=== PATIENT | male | born 1960 | race Two or more races ===

== ENCOUNTER 2020-11-16 21:53 | Inpatient (IN) | payer MEDICAID ==
[~2020-11-16] VITALS: Ht 175.3 cm; Wt 86.4 kg
[2020-11-16] MEDS ORDERED: iohexol 350MG/ML 100ml bottle IV ONE (22:09)
[2020-11-16 22:27] LABS: BASOPHILS % (AUTO) 0.4 % (0-1); EOSINOPHILS % (AUTO) 0.5 % (0-6); HEMOGLOBIN 14.6 g/dl (14.0-17.9); LYMPHOCYTES # (AUTO) 1.5 X10'3 (1.1-4.8); LYMPHOCYTES % (AUTO) 15.8 % (21-51); MEAN CORPUSCULAR HEMOGLOBIN 28.5 PG (27.0-31.0); MEAN CORPUSCULAR HGB CONC 32.6 g/dL (33.0-36.5); MEAN CORPUSCULAR VOLUME 87.7 FL (78-98); MEAN PLATELET VOLUME 7.4 FL (7.4-10.4); MONOCYTES # (AUTO) 0.7 X10'3 (0-0.9); MONOCYTES % (AUTO) 7.3 % (2-12); NEUTROPHILS # (AUTO) 7.3 X10'3 (1.8-7.7); PLATELET COUNT 268 X10'3 (140-440); RED BLOOD COUNT 5.13 X10'6 (4.70-6.10); RED CELL DISTRIBUTION WIDTH 18.3 % (11.5-14.5); WHITE BLOOD COUNT 9.6 X10'3 (4.5-11.0)
[2020-11-16] MEDS ORDERED: NO HOME MEDS (22:34)
[2020-11-16 22:36] LABS: D-DIMER 0.83 MG/L FEU (0-0.50); PARTIAL THROMBOPLASTIN TIME 25 SECONDS (22-32)
[2020-11-16 22:51] LABS: ALANINE AMINOTRANSFERASE 45 U/L (12-78); ALBUMIN 3.6 G/DL (3.4-5.0); ALBUMIN/GLOBULIN RATIO 0.9 (1.1-1.5); ALKALINE PHOSPHATASE 74 IU/L (46-116); ANION GAP 28 (8-16); ASPARTATE AMINO TRANSFERASE 70 U/L (10-37); BILIRUBIN,TOTAL 0.5 MG/DL (0.1-1.0); BLOOD UREA NITROGEN 9 MG/DL (7-18); BUN/CREATININE RATIO 9.5 (5.4-32.0); CALCIUM 8.2 MG/DL (8.5-10.1); CHLORIDE 102 MMOL/L (99-107); CREATININE 0.95 MG/DL (0.60-1.10); FERRITIN 50 NG/ML (26-388); GLUCOSE 63 MG/DL (70-104); LACTATE DEHYDROGENASE 241 U/L (85-227); MAGNESIUM 1.5 MG/DL (1.5-2.4); POTASSIUM 3.6 MMOL/L (3.5-5.1); SODIUM 142 MMOL/L (135-145); TOTAL PROTEIN 7.7 G/DL (6.4-8.2); eGFR 81 ML/MIN
[2020-11-16 22:56] LABS: TOTAL CARBON DIOXIDE 11.9 MMOL/L (24-32)
[2020-11-16 23:46] LABS: ABG BASE EXCESS -11.7 mmol/L (-2.0-2.0); ABG HCO3 11.6 mmol/L (22.0-26.0); ABG OXYGEN SATURATION 96.6 % (94-97); ABG PCO2 (T) 21.9 mmHg (35.0-48.0); ABG PO2 (T) 91.1 mmHg (75.0-100.0); ALLEN'S TEST POSITIVE; FCOHb 0.8 % (0.0-3.9); FMetHb 0.3 % (0.0-1.5); FO2Hb 95.5 % (94-97); TOTAL HEMOGLOBIN 15.5 G/dl (14.0-18.0)
[2020-11-17] VITALS (10 sets, daily range): BP systolic 126–144; BP diastolic 71–89
[2020-11-17] MEDS ORDERED: metoclopramide 5 mg/ml inj IV ONE (00:20)
[2020-11-17] MEDS ORDERED: phenobarbital inj 260 MG in normal saline 100ml IV soln 100 ML IV ONE (00:20)
[2020-11-17] MEDS ORDERED: magnesium 2GM in 50ml NS 50 ML IV ONE (00:20)
[2020-11-17] MEDS ORDERED: thiamine inj. 100 MG in normal saline 100ml IV soln 99 ML IV ONE (00:20)
[2020-11-17] MEDS ORDERED: ondansetron/PF 4mg/2ml inj IV ONE (00:20)
[2020-11-17] MEDS ORDERED: normal saline 1000ML IV soln IVB ONE (00:20)
[2020-11-17 00:42] LABS: ETHANOL 0.054 GM/DL (0.0-0.010)
[2020-11-17] MEDS ORDERED: dextrose 50%-water 50ml dispensing syringe IV ONE (01:30)
[2020-11-17 01:43] LABS: URINE AMPHETAMINE SCREEN NEGATIVE (Neg); URINE BARBITUATE SCREEN NEGATIVE (Neg); URINE BENZODIAZEPINES SCREEN NEGATIVE (Neg); URINE CANNABINOID SCREEN NEGATIVE (Neg); URINE COCAINE SCREEN NEGATIVE (Neg); URINE METHADONE SCREEN NEGATIVE (Neg); URINE OPIATE SCREEN NEGATIVE (Neg); URINE PHENCYCLIDINE SCREEN NEGATIVE (Neg)
[2020-11-17] MEDS ORDERED: haloperidol lactate 5mg/ml inj IM PRN (01:45)
[2020-11-17] MEDS ORDERED: LORazepam 2 mg/ml vial IV PRN (01:45)
[2020-11-17] MEDS ORDERED: mag hydrox/Alum hydrox/simeth 30ml oral suspension PO PRN (01:45)
[2020-11-17] MEDS ORDERED: acetaminophen 325mg tablet PO PRN ×2 (01:45)
[2020-11-17] MEDS ORDERED: dextrose 50%-water 50ml dispensing syringe IV PRN (01:45)
[2020-11-17] MEDS ORDERED: magnesium hydroxide 30ml (MOM) UD suspension PO PRN (01:45)
[2020-11-17] MEDS ORDERED: haloperidol 5mg tablet PO PRN (01:45)
[2020-11-17] MEDS ORDERED: ondansetron/PF 4mg/2ml inj IV PRN (01:45)
[2020-11-17] MEDS: pantoprazole 40 MG vial IV SCH ×2 (02:43→09:11)
[2020-11-17] MEDS: atenolol 25mg tablet PO SCH ×2 (03:07→09:12)
--- NOTE | 2020-11-17 06:39 | NUR ---
Patient in room ED 7. I have received report from Maxine HERCULES and had the opportunity to ask questions in preparation to assume patient care when pt goes to room PCU 3011J
--- NOTE | 2020-11-17 07:19 | NUR ---
Pt arrived to unit on [address], ambulated to bed in room with only SBA. pt deny chest pain. VS WNL. no sob. safety education completed. pt oriented to new environment including bathroom, call light and TV. needs anticipated and met. no s/sx acute distress.
[2020-11-17] MEDS ORDERED: heparin, porcine 5000 units/ml vial SQ SCH (08:00)
[2020-11-17] MEDS ORDERED: thiamine 100mg tablet PO SCH (08:00)
[2020-11-17] MEDS ORDERED: folic acid inj. 2 MG, thiamine inj. 100 MG, MVI, adult No.4 with vit. K 10 ML in dextro... IV SCH ×4 (08:00)
[2020-11-17] MEDS ORDERED: folic acid 1mg tablet PO SCH (08:00)
[2020-11-17] MEDS ORDERED: multivitamins, therapeutics tablet PO SCH (08:00)
--- NOTE | 2020-11-17 08:26 | NUR ---
atenolol not available at this time. Pharmacy paged. "May i please have atenolol for this patient? both [facility] say they dont carry it and it is not in pt specific. pt just came here from ER this am -Thanks -Kelly #[phone]" will administer when available.
[2020-11-17] MEDS ORDERED: metoprolol tartrate 1mg/ml inj IV PRN (09:30)
[2020-11-17] MEDS ORDERED: nitroGLYCERIN 0.4mg SUBLingual tab SL PRN (09:30)
[2020-11-17] MEDS ORDERED: aminophylline 250mg/10ml inj. IV PRN (09:30)
[2020-11-17] MEDS: regadenoson 0.4mg/5ml syringe IV PRN ×2 (12:05→12:11)
--- NOTE | 2020-11-17 15:50 | NUR ---
Problems reprioritized. Patient report given, questions answered & plan of care reviewed with Julia HERCULES. Pt content in bed, no sob. no chest pain . no s/sx acute distress
--- NOTE | 2020-11-17 17:50 | NUR ---
Pt stable for discharge per MD order. all discharge instructions explained and discussed with pt, all questions answered. no new rx. PIV discontinued. desk monitor discontinued. pt ambulated to the lobby with stand by nurse, and left in taxi cab. pt left without sob, no chest pain, no s/sx acute distress
[2020-11-17] MEDS ORDERED: temazepam 15mg capsule PO PRN (21:00)
[2020-11-19] MEDS ORDERED: LORazepam 1 MG tablet PO PRN (01:45)
[2020-11-19] MEDS ORDERED: LORazepam 2 mg/ml vial IV PRN (01:45)
[2020-11-21] MEDS ORDERED: LORazepam 2 mg/ml vial IV PRN (01:45)
[2020-11-21] MEDS ORDERED: LORazepam 1 MG tablet PO PRN (01:45)
== END 2020-11-17 17:07 | disposition home or self-care (01) | DRG 203 ==
LOC: ER 21:54 → ED HOLD 11-17 01:52 → PCU 3S 11-17 06:50
PROVIDERS: ADMIT Internal Medicine; ATTEND Internal Medicine
PROC: B32T1ZZ Computerized Tomography (CT Scan) of Left Pulmonary Artery using Low Osmolar Contrast (ICD-10-PCS; 2020-11-16)
PROC: B3201ZZ Computerized Tomography (CT Scan) of Thoracic Aorta using Low Osmolar Contrast (ICD-10-PCS; 2020-11-16)
PROC: B32S1ZZ Computerized Tomography (CT Scan) of Right Pulmonary Artery using Low Osmolar Contrast (ICD-10-PCS; 2020-11-16)
PROC: 4A02XM4 Measurement of Cardiac Total Activity, External Approach (ICD-10-PCS; principal; 2020-11-17)
PROC: 3E073KZ Introduction of Other Diagnostic Substance into Coronary Artery, Percutaneous Approach (ICD-10-PCS; 2020-11-17)
DX: R07.89 Other chest pain (principal); E87.4 Mixed disorder of acid-base balance; E16.2 Hypoglycemia, unspecified; K21.9 Gastro-esophageal reflux disease without esophagitis; Z60.2 Problems related to living alone; F10.229 Alcohol dependence with intoxication, unspecified; Z66 Do not resuscitate; K29.20 Alcoholic gastritis without bleeding; F10.230 Alcohol dependence with withdrawal, uncomplicated; Z20.822 Contact with and (suspected) exposure to COVID-19; Z59.0 Homelessness
CPT/HCPCS: 36415; 36600; 71045; 71275; 78452; 80053; 80305; 80320; 82728; 82803; 82948; 83615; 83735; 83880; 84145; 84484; 85018; 85025; 85379; 85384; 85610; 85730; 86140; 87081; 87635; 93005; 93017; 93306; 96365; 99285; A9500; C9113; C9803; G0378; J1644; J2060; J2405; J2560; J2765; J2785; J3411; J3475; J7030; Q9967

== ENCOUNTER 2020-11-26 10:40 | Emergency (ER) | payer MEDICAID, OTHER ==
[~2020-11-26] VITALS: Ht 175.3 cm; Wt 86.4 kg
[~2020-11-26 10:40] MED LIST: NO HOME MEDS
[2020-11-26] MEDS ORDERED: pantoprazole 40 MG vial IV ONE (12:00)
[2020-11-26] MEDS ORDERED: ondansetron/PF 4mg/2ml inj IV ONE (12:00)
[2020-11-26] MEDS ORDERED: LORazepam 2 mg/ml vial IV ONE (12:00)
[2020-11-26 12:42] LABS: BASOPHILS # (AUTO) 0.1 X10'3 (0-0.2); BASOPHILS % (AUTO) 0.5 % (0-1); EOSINOPHILS % (AUTO) 0.4 % (0-6); HEMATOCRIT 46.7 % (42.0-52.0); HEMOGLOBIN 14.8 g/dl (14.0-17.9); LYMPHOCYTES # (AUTO) 0.8 X10'3 (1.1-4.8); LYMPHOCYTES % (AUTO) 7.8 % (21-51); MEAN CORPUSCULAR HEMOGLOBIN 28.8 PG (27.0-31.0); MEAN CORPUSCULAR HGB CONC 31.8 g/dL (33.0-36.5); MEAN CORPUSCULAR VOLUME 90.5 FL (78-98); MEAN PLATELET VOLUME 7.2 FL (7.4-10.4); MONOCYTES # (AUTO) 0.9 X10'3 (0-0.9); MONOCYTES % (AUTO) 8.4 % (2-12); NEUTROPHILS # (AUTO) 8.7 X10'3 (1.8-7.7); NEUTROPHILS % (AUTO) 82.9 % (42-75); PLATELET COUNT 262 X10'3 (140-440); RED BLOOD COUNT 5.16 X10'6 (4.70-6.10); RED CELL DISTRIBUTION WIDTH 18.5 % (11.5-14.5); WHITE BLOOD COUNT 10.5 X10'3 (4.5-11.0)
[2020-11-26 13:06] LABS: ALANINE AMINOTRANSFERASE 80 U/L (12-78); ALBUMIN 3.6 G/DL (3.4-5.0); ALBUMIN/GLOBULIN RATIO 0.9 (1.1-1.5); ALKALINE PHOSPHATASE 86 IU/L (46-116); ANION GAP 29 (8-16); ASPARTATE AMINO TRANSFERASE 103 U/L (10-37); BILIRUBIN,TOTAL 0.9 MG/DL (0.1-1.0); BLOOD UREA NITROGEN 10 MG/DL (7-18); BUN/CREATININE RATIO 9.5 (5.4-32.0); CALCIUM 7.6 MG/DL (8.5-10.1); CHLORIDE 104 MMOL/L (99-107); CREATININE 1.05 MG/DL (0.60-1.10); GLUCOSE 80 MG/DL (70-104); LIPASE 79 U/L (73-393); MAGNESIUM 1.6 MG/DL (1.5-2.4); POTASSIUM 4.3 MMOL/L (3.5-5.1); SODIUM 145 MMOL/L (135-145); TOTAL PROTEIN 7.8 G/DL (6.4-8.2); TROPONIN I < 0.04 NG/ML (0.0-0.05); eGFR 72 ML/MIN
[2020-11-26 13:09] LABS: TOTAL CARBON DIOXIDE 12.2 MMOL/L (24-32)
[2020-11-26 14:59] LABS: ALBUMIN 3.7 G/DL (3.4-5.0); ANION GAP 22 (8-16); BLOOD UREA NITROGEN 11 MG/DL (7-18); BUN/CREATININE RATIO 10.4 (5.4-32.0); CALCIUM 7.9 MG/DL (8.5-10.1); CHLORIDE 105 MMOL/L (99-107); CREATININE 1.06 MG/DL (0.60-1.10); GLUCOSE 86 MG/DL (70-104); POTASSIUM 4.9 MMOL/L (3.5-5.1); SODIUM 144 MMOL/L (135-145); eGFR 71 ML/MIN
[2020-11-26 15:40] VITALS: BP 140/87
== END 2020-11-26 16:10 | disposition home or self-care (01) ==
LOC: ER 10:40
DX: R07.89 Other chest pain (principal); R10.13 Epigastric pain; F10.20 Alcohol dependence, uncomplicated; Z72.89 Other problems related to lifestyle
CPT/HCPCS: 36415; 80048; 80053; 83690; 83735; 84484; 85025; 93005; 96374; 96375; 99284; C9113; J2060; J2405

== ENCOUNTER 2021-01-23 20:19 | Inpatient (IN) | payer MEDICAID ==
[~2021-01-23] VITALS: Ht 175.3 cm; Wt 86.3 kg
[2021-01-23] MEDS ORDERED: normal saline 1000ml 1,000 ML IV ONE ×2 (20:40→21:00)
[2021-01-23] MEDS ORDERED: ondansetron/PF 4mg/2ml inj IV ONE ×2 (20:40→23:30)
[2021-01-23] MEDS ORDERED: LORazepam 2 mg/ml vial IV ONE ×2 (20:40→22:40)
[2021-01-23 21:06] LABS: BASOPHILS # (AUTO) 0.2 X10'3 (0-0.2); EOSINOPHILS % (AUTO) 0 % (0-6); HEMATOCRIT 50.6 % (42.0-52.0); HEMOGLOBIN 16.5 g/dl (14.0-17.9); LYMPHOCYTES # (AUTO) 2.2 X10'3 (1.1-4.8); MEAN CORPUSCULAR HEMOGLOBIN 29.2 PG (27.0-31.0); MEAN CORPUSCULAR HGB CONC 32.5 g/dL (33.0-36.5); MEAN CORPUSCULAR VOLUME 89.7 FL (78-98); MEAN PLATELET VOLUME 7.4 FL (7.4-10.4); MONOCYTES # (AUTO) 0.8 X10'3 (0-0.9); MONOCYTES % (AUTO) 5.5 % (2-12); NEUTROPHILS # (AUTO) 11.7 X10'3 (1.8-7.7); NEUTROPHILS % (AUTO) 78.5 % (42-75); PLATELET COUNT 502 X10'3 (140-440); RED BLOOD COUNT 5.63 X10'6 (4.70-6.10); RED CELL DISTRIBUTION WIDTH 18.7 % (11.5-14.5)
[2021-01-23 21:13] LABS: ALANINE AMINOTRANSFERASE 43 U/L (12-78); ALBUMIN 3.9 G/DL (3.4-5.0); ALBUMIN/GLOBULIN RATIO 0.7 (1.1-1.5); ALKALINE PHOSPHATASE 96 IU/L (46-116); ANION GAP 33 (8-16); ASPARTATE AMINO TRANSFERASE 60 U/L (10-37); BILIRUBIN,TOTAL 0.5 MG/DL (0.1-1.0); BLOOD UREA NITROGEN 11 MG/DL (7-18); BUN/CREATININE RATIO 8.5 (5.4-32.0); CHLORIDE 105 MMOL/L (99-107); ETHANOL 0.215 GM/DL (0.0-0.010); GLUCOSE 87 MG/DL (70-104); LIPASE 87 U/L (73-393); POTASSIUM 3.9 MMOL/L (3.5-5.1); SODIUM 151 MMOL/L (135-145); TOTAL PROTEIN 9.3 G/DL (6.4-8.2); eGFR 56 ML/MIN
[2021-01-23 21:27] LABS: CALCIUM 8.9 MG/DL (8.5-10.1)
[2021-01-23 21:31] LABS: TOTAL CARBON DIOXIDE 13.4 MMOL/L (24-32)
[2021-01-23] MEDS ORDERED: thiamine 100mg/ml 2ml inj. IV ONE (21:50)
[2021-01-23] MEDS ORDERED: folic acid 1mg/0.2ml inj IV ONE (21:50)
[2021-01-23] MEDS ORDERED: dextrose 5%-water 1,000 ML IV ONE (22:35)
[2021-01-23 22:53] LABS: CLARITY,URINE CLEAR (Clear); COLOR,URINE YELLOW (Yellow); UA COLLECTION TYPE URINAL
[2021-01-23 22:54] LABS: GLUCOSE, URINE NEGATIVE (Neg); KETONES,URINE NEGATIVE (Neg); LEUKOCYTE ESTERASE ,URINE NEGATIVE (Neg); NITRITES, URINE NEGATIVE (Neg); OCCULT BLOOD,URINE LARGE (Neg); PH,URINE 5.5 (4.8-8.0); PROTEIN,URINE 100 mg/dl (Neg); UROBILINOGEN,URINE 0.2 E.U/dL (0.2-1.0)
[2021-01-23 22:58] LABS: URINE AMPHETAMINE SCREEN NEGATIVE (Neg); URINE BARBITUATE SCREEN NEGATIVE (Neg); URINE BENZODIAZEPINES SCREEN NEGATIVE (Neg); URINE CANNABINOID SCREEN NEGATIVE (Neg); URINE COCAINE SCREEN NEGATIVE (Neg); URINE METHADONE SCREEN NEGATIVE (Neg); URINE OPIATE SCREEN NEGATIVE (Neg); URINE PHENCYCLIDINE SCREEN NEGATIVE (Neg)
[2021-01-23 23:26] LABS: ABG BASE EXCESS -18.7 mmol/L (-2.0-2.0); ABG HCO3 8.9 mmol/L (22.0-26.0); ABG OXYGEN SATURATION 93.2 % (94-97); ABG PCO2 (T) 27.3 mmHg (35.0-48.0); ABG PO2 (T) 84.1 mmHg (75.0-100.0); ALLEN'S TEST POSITIVE; FCOHb 0.1 % (0.0-3.9); FMetHb 0.5 % (0.0-1.5); FO2Hb 92.6 % (94-97); PATIENT TEMPERATURE 37.2; TOTAL HEMOGLOBIN 14.6 G/dl (14.0-18.0)
[2021-01-23] MEDS ORDERED: phenobarbital inj 260 MG in normal saline 100ml IV soln 100 ML IV ONE (23:30)
[2021-01-23] MEDS ORDERED: magnesium oxide 400mg tablet PO ONE (23:30)
[2021-01-23 23:54] LABS: HYALINE CASTS 0-3 /LPF (NEGATIVE); MUCUS STRANDS NONE SEEN /LPF (Neg); SQUAMOUS EPITHELIAL CELL,UR FEW /LPF (FEW)
[2021-01-23 23:55] LABS: WBC,URINE 0-4 /HPF (0-4)
[2021-01-23 23:56] LABS: BACTERIA,URINE NONE SEEN /HPF (Neg)
[2021-01-23 23:57] LABS: RBC,URINE 0-2 /HPF (0-2)
[2021-01-24 00:05] LABS: MAGNESIUM 1.9 MG/DL (1.5-2.4)
[2021-01-24] MEDS ORDERED: magnesium 4gm in 100ml NS 100 ML IV PRN (03:10)
[2021-01-24] MEDS ORDERED: magnesium Cl slow-release 64mg tablet PO PRN (03:10)
[2021-01-24] MEDS ORDERED: magnesium 2GM in 50ml NS 50 ML IV PRN (03:10)
[2021-01-24] MEDS ORDERED: potassium Cl 40MEQ/1/2NS 520ml 520 ML IV PRN ×2 (03:10)
[2021-01-24] MEDS ORDERED: potassium Cl 20 mEq SR tablet PO PRN ×2 (03:10)
[2021-01-24] MEDS ORDERED: ondansetron/PF 4mg/2ml inj IV PRN (03:10)
[2021-01-24] MEDS: normal saline 1000ml 1,000 ML IV SCH ×3 (03:43→23:10)
[2021-01-24] MEDS ORDERED: NO HOME MEDS (04:00)
[2021-01-24] MEDS ORDERED: LORazepam 2 mg/ml vial IV PRN ×2 (05:05→05:24)
[2021-01-24] MEDS ORDERED: thiamine inj. 100 MG in normal saline 100ml IV soln 100 ML IV ONE (06:35)
[2021-01-24] MEDS: K and/or MAG REPLACEMENT MC SCH ×2 (08:00→20:00)
[2021-01-24] MEDS ORDERED: folic acid inj. 2 MG, thiamine inj. 100 MG, MVI, adult No.4 with vit. K 10 ML in dextro... IV SCH ×4 (08:00)
[2021-01-24] MEDS: folic acid 1mg/0.2ml inj IV SCH (08:03)
[2021-01-24 16:30] VITALS: BP 127/76
[2021-01-24 17:30] VITALS: BP 140/87
[2021-01-24 18:00] VITALS: BP 140/87
--- NOTE | 2021-01-24 18:36 | NUR ---
Problems reprioritized. Patient report given, questions answered & plan of care reviewed with Kimi HERCULES.
[2021-01-24 22:00] VITALS: BP 130/70
[2021-01-25 02:00] VITALS: BP 131/79
[2021-01-25 06:00] VITALS: BP 122/77
--- NOTE | 2021-01-25 06:30 | NUR ---
Patient in room PCU 3015. I have received report from Kimi HERCULES and had the opportunity to ask questions and assume patient care.
[2021-01-25] MEDS ORDERED: thiamine inj. 100 MG in normal saline 100ml IV soln 99 ML IV SCH (08:00)
[2021-01-25] MEDS: K and/or MAG REPLACEMENT MC SCH ×2 (08:00→18:33)
[2021-01-25] MEDS: normal saline 1000ml 1,000 ML IV SCH ×2 (09:10→19:34)
[2021-01-25] MEDS: LORazepam 1 MG tablet PO PRN ×2 (09:11→14:10)
[2021-01-25 09:27] LABS: BASOPHILS # (AUTO) 0.1 X10'3 (0-0.2); BASOPHILS % (AUTO) 0.8 % (0-1); EOSINOPHILS # (AUTO) 0.1 X10'3 (0-0.9); EOSINOPHILS % (AUTO) 1.9 % (0-6); HEMATOCRIT 36.1 % (42.0-52.0); HEMOGLOBIN 12.1 g/dl (14.0-17.9); LYMPHOCYTES # (AUTO) 1.3 X10'3 (1.1-4.8); LYMPHOCYTES % (AUTO) 19.5 % (21-51); MEAN CORPUSCULAR HEMOGLOBIN 28.8 PG (27.0-31.0); MEAN CORPUSCULAR HGB CONC 33.6 g/dL (33.0-36.5); MEAN PLATELET VOLUME 7.5 FL (7.4-10.4); MONOCYTES # (AUTO) 0.6 X10'3 (0-0.9); MONOCYTES % (AUTO) 9.3 % (2-12); NEUTROPHILS # (AUTO) 4.7 X10'3 (1.8-7.7); NEUTROPHILS % (AUTO) 68.5 % (42-75); PLATELET COUNT 284 X10'3 (140-440); RED BLOOD COUNT 4.21 X10'6 (4.70-6.10); RED CELL DISTRIBUTION WIDTH 17.5 % (11.5-14.5); WHITE BLOOD COUNT 6.8 X10'3 (4.5-11.0)
--- NOTE | 2021-01-25 09:43 | NUR ---
Met with patient in regards to alcohol use and to see if patient wanted resources for treatment. Patient declined getting any help at this time.
[2021-01-25 10:02] LABS: ALANINE AMINOTRANSFERASE 30 U/L (12-78); ALBUMIN 2.7 G/DL (3.4-5.0); ALBUMIN/GLOBULIN RATIO 0.8 (1.1-1.5); ALKALINE PHOSPHATASE 61 IU/L (46-116); AMYLASE 34 U/L (25-115); ANION GAP 13 (8-16); ASPARTATE AMINO TRANSFERASE 38 U/L (10-37); BILIRUBIN,TOTAL 0.9 MG/DL (0.1-1.0); BLOOD UREA NITROGEN 10 MG/DL (7-18); BUN/CREATININE RATIO 12.2 (5.4-32.0); CALCIUM 7.7 MG/DL (8.5-10.1); CHLORIDE 108 MMOL/L (99-107); CREATININE 0.82 MG/DL (0.60-1.10); GLUCOSE 95 MG/DL (70-104); LIPASE 107 U/L (73-393); MAGNESIUM 1.6 MG/DL (1.5-2.4); PHOSPHORUS 1.8 MG/DL (2.3-4.5); POTASSIUM 3.5 MMOL/L (3.5-5.1); SODIUM 143 MMOL/L (135-145); TOTAL CARBON DIOXIDE 21.9 MMOL/L (24-32); TOTAL PROTEIN 6.3 G/DL (6.4-8.2); eGFR > 90 ML/MIN
[2021-01-25] MEDS: folic acid 1mg/0.2ml inj IV SCH (10:12)
[2021-01-25 11:00] VITALS: BP 124/82
[2021-01-25] MEDS: Neutra Phos packet PO SCH ×2 (12:11→19:33)
[2021-01-25] MEDS ORDERED: Neutra Phos packet PO PRN (13:00)
[2021-01-25] MEDS ORDERED: Neutra Phos packet PO SCH (13:00)
--- NOTE | 2021-01-25 13:45 | NUR ---
Paged Dr. Johnson regarding tylenol. PAGER ID: [phone] MESSAGE: [phone] Jeremy Savage. Patient has a headache can we get Tylenol on board please? JASON Haile.
[2021-01-25] MEDS ORDERED: acetaminophen 325mg tablet PO PRN (13:50)
[2021-01-25 15:00] VITALS: BP 127/82
--- NOTE | 2021-01-25 18:11 | NUR ---
Problems reprioritized. Patient report given, questions answered & plan of care reviewed with Natalee RN, patient stable at transfer of care.
--- NOTE | 2021-01-25 18:16 | NUR ---
[place] documentation: I have reviewed and agree with all interventions, assessments performed and documented by Lazara HERCULES.
--- NOTE | 2021-01-25 18:17 | NUR ---
[place] Medication Administration: For this medication-pass time frame, all medication were reviewed, dispensed, administered and documented per hospital policy by Lazara HERCULES.
[2021-01-25 18:47] VITALS: BP 125/74
[2021-01-25] MEDS ORDERED: enoxaparin 40mg/0.4ml syringe SUBCUT SCH (20:00)
[2021-01-25] MEDS ORDERED: thiamine inj. 100 MG in normal saline 100ml IV soln 100 ML IV SCH (23:02)
[2021-01-26] MEDS: normal saline 1000ml 1,000 ML IV SCH (05:21)
[2021-01-26 06:00] VITALS: BP 152/90
[2021-01-26] MEDS: folic acid 1mg/0.2ml inj IV SCH (07:57)
[2021-01-26] MEDS: Neutra Phos packet PO SCH (07:58)
[2021-01-26 08:00] LABS: BASOPHILS # (AUTO) 0.1 X10'3 (0-0.2); BASOPHILS % (AUTO) 1.2 % (0-1); EOSINOPHILS # (AUTO) 0.3 X10'3 (0-0.9); EOSINOPHILS % (AUTO) 4.3 % (0-6); HEMATOCRIT 37.5 % (42.0-52.0); HEMOGLOBIN 12.6 g/dl (14.0-17.9); LYMPHOCYTES # (AUTO) 1.5 X10'3 (1.1-4.8); LYMPHOCYTES % (AUTO) 24.1 % (21-51); MEAN CORPUSCULAR HGB CONC 33.6 g/dL (33.0-36.5); MEAN CORPUSCULAR VOLUME 86.3 FL (78-98); MEAN PLATELET VOLUME 7.5 FL (7.4-10.4); MONOCYTES # (AUTO) 0.5 X10'3 (0-0.9); MONOCYTES % (AUTO) 8.3 % (2-12); NEUTROPHILS # (AUTO) 3.9 X10'3 (1.8-7.7); NEUTROPHILS % (AUTO) 62.1 % (42-75); PLATELET COUNT 251 X10'3 (140-440); RED BLOOD COUNT 4.35 X10'6 (4.70-6.10); RED CELL DISTRIBUTION WIDTH 17.5 % (11.5-14.5); WHITE BLOOD COUNT 6.3 X10'3 (4.5-11.0)
[2021-01-26 08:15] LABS: ALANINE AMINOTRANSFERASE 31 U/L (12-78); ALBUMIN 2.9 G/DL (3.4-5.0); ALBUMIN/GLOBULIN RATIO 0.8 (1.1-1.5); ALKALINE PHOSPHATASE 68 IU/L (46-116); AMYLASE 34 U/L (25-115); ANION GAP 11 (8-16); ASPARTATE AMINO TRANSFERASE 37 U/L (10-37); BILIRUBIN,TOTAL 1.1 MG/DL (0.1-1.0); BLOOD UREA NITROGEN 6 MG/DL (7-18); BUN/CREATININE RATIO 8.6 (5.4-32.0); CALCIUM 8.1 MG/DL (8.5-10.1); CHLORIDE 109 MMOL/L (99-107); GLUCOSE 93 MG/DL (70-104); LIPASE 104 U/L (73-393); MAGNESIUM 1.5 MG/DL (1.5-2.4); PHOSPHORUS 2.5 MG/DL (2.3-4.5); POTASSIUM 3.3 MMOL/L (3.5-5.1); SODIUM 145 MMOL/L (135-145); TOTAL PROTEIN 6.7 G/DL (6.4-8.2); eGFR > 90 ML/MIN
[2021-01-26] MEDS ORDERED: PANT-47 PO (10:47)
== END 2021-01-26 13:14 | disposition home or self-care (01) | DRG 426 ==
LOC: ER 20:19 → ED HOLD 01-24 03:11 → PCU 3S 01-24 16:03
PROVIDERS: ADMIT Internal Medicine; ATTEND Internal Medicine
DX: E87.0 Hyperosmolality and hypernatremia (principal); N17.0 Acute kidney failure with tubular necrosis; E87.2 Acidosis; W18.39XA Other fall on same level, initial encounter; K21.00 Gastro-esophageal reflux disease with esophagitis, without bleeding; R71.0 Precipitous drop in hematocrit; D72.829 Elevated white blood cell count, unspecified; F10.229 Alcohol dependence with intoxication, unspecified; F10.230 Alcohol dependence with withdrawal, uncomplicated; W18.30XA Fall on same level, unspecified, initial encounter; Z59.00 Homelessness unspecified; Y93.89 Activity, other specified; Y92.89 Other specified places as the place of occurrence of the external cause; Y99.8 Other external cause status
CPT/HCPCS: 36415; 36600; 70450; 71045; 74018; 80053; 80305; 80320; 81001; 82150; 82803; 82948; 83605; 83690; 83735; 84100; 84145; 84484; 85018; 85025; 85610; 87040; 87081; 93005; 97161; 97530; 99285; G0378; J1650; J2060; J2405; J2560; J3411; J3490; J7030; J7070